=== PATIENT | male | born 1970 | race Caucasian/White ===

== ENCOUNTER 2016-10-15 12:47 | Emergency (ER) | payer OTHER ==
[2016-10-15 14:18] LABS: BASOPHIL % 0.3 % (0-2); PLATELET COUNT 138 x10^3mcL (130-400)
[2016-10-15 14:25] LABS: BILIRUBIN TOTAL 0.6 mg/dL (0.20-1.00); CALCIUM 9.3 mg/dL (8.5-10.1); CARBON DIOXIDE 26.4 mmol/L (21-32)
[2016-10-15 14:28] LABS: ALBUMIN 3.1 g/dL (3.4-5.0); CREATININE SERUM 7.7 mg/dL (0.7-1.3); POTASSIUM SERUM 2.8 mmol/L (3.5-5.1)
[2016-10-15 14:49] LABS: RED CELL DISTRIBUTION WIDTH 14.8 % (11.5-14.5)
[2016-10-15 15:19] VITALS: BP 140/70
== END 2016-10-15 15:19 | disposition home or self-care (01) ==
LOC: ED 12:47
PROVIDERS: Emergency Medicine
DX: T63.441A Toxic effect of venom of bees, accidental (unintentional), initial encounter (principal); N18.9 Chronic kidney disease, unspecified; E87.6 Hypokalemia; Y92.89 Other specified places as the place of occurrence of the external cause
CPT/HCPCS: J0171; J1200; J2930; J7613; J7644; Q0092

== ENCOUNTER 2019-04-27 17:48 | Emergency (ER) | payer OTHER ==
[~2019-04-27] VITALS: Ht 162.6 cm; Wt 68.0 kg
[2019-04-27 18:07] VITALS: Ht 162.6 cm; Wt 68.0 kg
[2019-04-27 18:26] LABS: BASOPHIL % 0.2 % (0-2); PLATELET COUNT 140 x10^3mcL (130-400)
[2019-04-27 18:27] LABS: RED CELL DISTRIBUTION WIDTH 17.5 % (11.5-14.5)
[2019-04-27 18:36] LABS: CALCIUM 9.9 mg/dL (8.5-10.1); CARBON DIOXIDE 25.7 mmol/L (21-32); POTASSIUM SERUM 3.8 mmol/L (3.5-5.1); TOTAL PROTEIN, SERUM 8.1 g/dL (6.4-8.2)
[2019-04-27 18:45] LABS: ALBUMIN 3.1 g/dL (3.4-5.0); CREATININE SERUM 6.6 mg/dL (0.7-1.3)
[2019-04-27 20:37] VITALS: BP 103/61
== END 2019-04-27 20:50 | disposition left against medical advice (07) ==
LOC: ED 17:48
DX: I95.9 Hypotension, unspecified (principal); R10.84 Generalized abdominal pain; N18.6 End stage renal disease; Z99.2 Dependence on renal dialysis; Z86.19 Personal history of other infectious and parasitic diseases; R79.89 Other specified abnormal findings of blood chemistry
CPT/HCPCS: J7030; Q0092